=== PATIENT | male | born 1980 | race Caucasian/White ===

== ENCOUNTER 2017-12-31 03:11 | Emergency (ER) | payer BC ==
[2017-12-31] MEDS ORDERED: NS 1,000 ML IV ONE (03:37)
--- NOTE | 2017-12-31 03:37 | EDPHY ---
H & P Stated Complaint: lower abdo pain, loose bloody stool Time Seen by Provider: 12/31/17 03:30 HPI/ROS: Chief Complaint: Diarrhea, blood in stool HPI: 37-year-old male woke 3 hr ago with some abdominal discomfort. Went to the bathroom has had multiple episodes of diarrhea. Stool started off loose has become watery. He has had some blood in the last several bowel movement with small amount of blood per rectum. No nausea or vomiting. He has had some crampy abdominal lower pain primarily in the left. No fevers or chills. Was camping in [place] 2 weeks ago. No other known exposures or travel. No history of similar episodes in the past. ROS: 10 systems were reviewed and were negative except those elements noted in the HPI. PMH: Denies Social History: No smoking, occasional alcohol, occasional marijuana Family History: non-contributory Physical Exam: Gen: Awake, Alert, No Distress HEENT: Nose: no rhinorrhea Eyes: PERRLA, EOMI Mouth: Moist mucosa Neck: Supple, no JVD Chest: nontender, lungs clear to auscultation Heart: S1, S2 normal, no murmur Abd: Soft, non-tender, no guarding Back: no CVA tenderness, no midline tenderness Ext: no edema, non-tender Skin: no rash Neuro: CN II-XII intact, Sensation grossly intact, Strength 5/5 in bilateral upper and lower extremities - Personal History Current Tetanus/Diphtheria Vaccine: Yes Current Tetanus Diphtheria and Acellular Pertussis (TDAP): Yes - Medical/Surgical History Hx Asthma: No Hx Chronic Respiratory Disease: No Hx Diabetes: No Hx Cardiac Disease: No Hx Renal Disease: No Hx Cirrhosis: No Hx Alcoholism: No Hx HIV/AIDS: No Hx Splenectomy or Spleen Trauma: No Other PMH: denies - Social History Smoking Status: Never smoked Constitutional: Initial Vital Signs Temperature (C) 36.7 C 12/31/17 03:13 Heart Rate 90 12/31/17 03:13 Respiratory Rate 16 12/31/17 03:13 Blood Pressure 127/76 H 12/31/17 03:13 O2 Sat (%) 98 12/31/17 03:13 O2 Delivery Mode Room Air Allergies/Adverse Reactions: No Known Allergies Allergy (Unverified 12/31/17 03:12) Home Medications: Medication Instructions Recorded NK [No Known Home Meds] 12/31/17 Medical Decision Making ED Course/Re-evaluation: The patient is feeling improved after IV hydration. Blood counts are normal. Symptoms consistent with in flexion is colitis/gastroenteritis. He is well- hydrated. He is tolerating p. O.. Will discharge with follow-up with primary care. - Data Points Laboratory Results: Laboratory Results 12/31/17 03:29 12/31/17 03:29 12/31/17 12/31/17 03:29 03:29 WBC 12.76 10^3/uL H 10^3/uL (3.80-9.50) RBC 4.44 10^6/uL 10^6/uL (4.40-6.38) Hgb 15.6 g/dL g/dL (13.7-17.5) Hct 43.2 % % (40.0-51.0) MCV 97.3 fL fL (81.5-99.8) MCH 35.1 pg H pg (27.9-34.1) MCHC 36.1 g/dL g/dL (32.4-36.7) RDW 11.9 % % (11.5-15.2) Plt Count 221 10^3/uL 10^3/uL (150-400) MPV 10.4 fL fL (8.7-11.7) Neut % (Auto) 86.5 % H % (39.3-74.2) Lymph % (Auto) 8.2 % L % (15.0-45.0) Hart % (Auto) 4.0 % L % (4.5-13.0) Eos % (Auto) 0.5 % L % (0.6-7.6) Baso % (Auto) 0.5 % % (0.3-1.7) Nucleat RBC Rel Count 0.0 % % (0.0-0.2) Absolute Neuts (auto) 11.05 10^3/uL H 10^3/uL (1.70-6.50) Absolute Lymphs (auto) 1.04 10^3/uL 10^3/uL (1.00-3.00) Absolute Monos (auto) 0.51 10^3/uL 10^3/uL (0.30-0.80) Absolute Eos (auto) 0.06 10^3/uL 10^3/uL (0.03-0.40) Absolute Basos (auto) 0.06 10^3/uL 10^3/uL (0.02-0.10) Absolute Nucleated RBC 0.00 10^3/uL 10^3/uL (0-0.01) Immature Gran % 0.3 % % (0.0-1.1) Immature Gran # 0.04 10^3/uL 10^3/uL (0.00-0.10) Sodium 139 mEq/L mEq/L (135-145) Potassium 3.8 mEq/L mEq/L (3.3-5.0) Chloride 104 mEq/L mEq/L (97-110) Carbon Dioxide 24 mEq/l mEq/l (22-31) Anion Gap 11 mEq/L mEq/L (8-16) BUN 18 mg/dL mg/dL (7-23) Creatinine 0.8 mg/dL mg/dL (0.7-1.3) Estimated GFR > 60 Glucose 114 mg/dL H mg/dL (70-100) Calcium 9.8 mg/dL mg/dL (8.5-10.4) Medications Given: Discontinued Medications Sodium Chloride (Ns) 1,000 mls @ 0 mls/hr IV ONCE ONE; Wide Open PRN Reason: Protocol Stop: 12/31/17 03:38 Last Admin: 12/31/17 03:44 Dose: 1,000 mls Departure - Departure Disposition: Home, Routine, Self-Care Clinical Impression: Colitis Condition: Good Instructions: Infectious Colitis (ED), Rectal Bleeding (ED) Additional Instructions: Make sure to drink plenty of fluids. Follow up with primary care physician in 2-3 days for further evaluation. Return to the emergency department for lightheadedness, fainting, worsening abdominal pain, vomiting blood, or any other concerns. Referrals: Keira Cam MD [[facility] [place] Primary Care Provider] - As per Instructions
[2017-12-31 03:41] LABS: PLATELET COUNT 221 10^3/uL (150-400)
[2017-12-31 05:43] VITALS: BP 106/70
== END 2017-12-31 05:43 | disposition home or self-care (01) ==
DX: K52.9 Noninfective gastroenteritis and colitis, unspecified (principal); E86.9 Volume depletion, unspecified